=== PATIENT | female | born 1970 | race Caucasian/White ===

== ENCOUNTER 2021-04-17 17:07 | Emergency (ER) | payer OTHER, SELFPAY ==
[2021-04-17 17:18] VITALS: BP 100/76; PULSE 85; RESP 20; TEMP 37.3; O2SAT 99
== END 2021-04-17 17:27 | disposition left against medical advice (07) ==
PROVIDERS: Emergency Provider Emergency Medicine; PCP Family Medicine
DX: Z20.822 Contact with and (suspected) exposure to COVID-19 (principal)
CPT/HCPCS: 99281

== ENCOUNTER 2021-06-02 17:42 | Emergency (ER) | payer OTHER, MEDICAID, SELFPAY ==
[2021-06-02 18:20] VITALS: BP 134/85; PULSE 89; RESP 20; TEMP 36.2; O2SAT 97; BMI 29.0
--- NOTE | 2021-06-02 18:25 | DI.RAD.S_ITS ---
PROCEDURE: XR WRIST RT MIN 3V INDICATIONS: suspected right wrist fracture TECHNIQUE: 4 views of the wrist were acquired. COMPARISON: None. FINDINGS: Bones: No acute fractures or dislocations. Old ulnar styloid fracture with a large corticated fragment. Moderate degenerative joint disease at triscaphe joint, and mild degenerative joint disease of the radiocarpal joint and carpometacarpal joints. Periarticular erosion involving the 5th metacarpal head. Scaphoid view: Scaphoid is intact. Soft tissues: No suspicious soft tissue calcifications. IMPRESSION: 1. No acute fracture or dislocation. If clinical symptoms persist or clinical suspicion for pathology is high, a repeat examination in 7-10 days, or advanced imaging such as CT or MRI is suggested for further evaluation. 2. Old ulnar styloid fracture. 3. Degenerative joint disease. Dictated by: Rodger Stokes M.D. on 06/02/2021 at 18:33 Approved by: Rodger Stokes M.D. on 06/02/2021 at 18:36
--- NOTE | 2021-06-02 19:01 | ED.UPPEXIN ---
HPI - Extremity Injury (Upper) General Chief Complaint: Extremity Injury, Upper Stated Complaint: Fall, Right Wrist Injury and Head Bump Time Seen by Provider: 06/02/21 18:07 Source: patient Mode of arrival: Ambulatory Limitations: no limitations History of Present Illness HPI narrative: 50-year-old female former smoker with otherwise noncontributory medical history presents for evaluation of a ground level fall onto an outstretched right wrist. She was walking up some stairs when she tripped and stumbled onto her right outstretched arm and now has pain on the dorsum of her wrist and at the base of her thumb. She denies any numbness, tingling or weakness. She has increased pain with range of motion and improvement with rest. She did slightly bump her head but did not lose consciousness, has no nausea or vomiting, no focal neurologic findings and takes no blood thinners. She denies any prodromal symptoms and states she was not dizzy nor weak or lightheaded. She had no chest pain or palpitations. She states she just tripped when walking Related Data Allergies Allergy/AdvReac Type Severity Reaction Status Date / Time venlafaxine [From Effexor] AdvReac Verified 06/02/21 18:20 Review of Systems Review of Systems Narrative: GENERAL: Denies chills, fatigue, malaise, fever, sweats. HEENT: Denies sinus pain, ear pain, sore throat, difficulty swallowing, dizziness. RESPIRATORY: Denies dyspnea, cough, wheezing, hemoptysis, sputum. CARDIOVASCULAR: Denies chest pain, palpitations, orthopnea, edema, GASTROINTESTINAL: Denies nausea, vomiting, abdominal pain, diarrhea, constipation, melena. : Denies dysuria, frequency, incontinence, hematuria, urinary retention. MUSCULOSKELETAL: See HPI SKIN: Denies rash, skin lesions, or other NEUROLOGIC: Denies weakness, headache, numbness, change in speech, confusion, seizures, incoordination. PSYCHIATRIC: No concerning psychosocial issues. 12 point review of systems is negative except for those stated above Patient History Social History Smoking Status: Former smoker Smoking Status: Former smoker Substance Use Type: does not use Exam Narrative Exam Narrative: GENERAL: [50 year old patient appears stated age. Well-developed patient, in mild distress. GCS 15 HEAD: Atraumatic. Normocephalic. EYES: Pupils equal round and reactive. Extraocular motions intact. No scleral icterus. No injection or drainage. ENT: Nose without bleeding, purulent drainage. Throat without erythema, tonsillar hypertrophy or exudate. Airway patent. NECK: Trachea midline. Non tender CARDIOVASCULAR: Regular rate and rhythm without murmurs, gallops, or rubs. RESPIRATORY: Clear to auscultation. Breath sounds equal bilaterally. No wheezes, rales, or rhonchi. GASTROINTESTINAL: Abdomen soft, non-tender, nondistended. EXTREMITIES: Full but painful range of motion of the right wrist, she does have pain with palpation of the anatomic snuffbox as well as with axial loading of the thumb. No numbness, tingling or weakness, no laceration BACK: Nontender without deformity or crepitance. No flank tenderness. NEURO: AOx3. SKIN: No rash or erythema of visible areas Initial Vital Signs Initial Vital Signs: Vital Signs Temperature 97.2 F L 06/02/21 18:20 Pulse Rate 89 06/02/21 18:20 Respiratory Rate 20 06/02/21 18:20 Blood Pressure 134/85 06/02/21 18:20 Pulse Oximetry 97 06/02/21 18:20 Procedures Orthopedic Splinting/Casting Injury #1: Side: right Upper Extremity Injury Location: wrist Upper Extremity Immobilizer: thumb spica Post splinting neuro exam: intact Post splinting vascular exam: intact Placed by: Nursing Course Orders Ordered: ED Orders 06/02/21 18:25 XR wrist RT min 3V Stat Discontinued Medications Oxycodone/Acetaminophen (Oxycodone/Apap 5/325 Prepack) 1 bottle MISC SEEINSTR ONE Stop: 06/02/21 19:11 Last Admin: 06/02/21 19:18 Dose: 1 bottle Documented by: AUPDIKE Vital Signs Vital signs: Vital Signs - 8 hr 06/02/21 18:20 Temperature 97.2 F L Pulse Rate 89 Respiratory Rate 20 Blood Pressure 134/85 Pulse Oximetry 97 MDM - Extremity Injury (Upper) Imaging Data Extremity x-ray #1: Radiologist's Impression: Yasmin Schroeder??50??F??1970 ? Allergy/Adv: venlafaxine Close Wrist X-Ray (Signed) Isatu Stokes - 06/02/21 Launch?[address] [address] XRay Report Signed Patient: Yasmin Schroeder MR#: [id number] : 1970 Acct:[id number] Age/Sex: 50 / F Date of Service: 06/02/21 Loc: ED Accession Number: [id number] ?? Procedure: XR wrist RT min 3V Ordering Provider: Woody Lazcano D.O. PROCEDURE:? XR WRIST RT MIN 3V ? INDICATIONS: suspected right wrist fracture ? TECHNIQUE:? 4 views of the wrist were acquired.? ? COMPARISON:? None. ? FINDINGS:? ? Bones:? No acute fractures or dislocations.? Old ulnar styloid fracture with a large corticated fragment.? Moderate degenerative joint disease at triscaphe joint, and mild degenerative joint disease of the radiocarpal joint and carpometacarpal joints.? Periarticular erosion involving the 5th metacarpal head. ? Scaphoid view:? Scaphoid is intact. ? Soft tissues:? No suspicious soft tissue calcifications.? ? IMPRESSION:? ? 1. No acute fracture or dislocation.? If clinical symptoms persist or clinical suspicion for pathology is high, a repeat examination in 7-10 days, or advanced imaging such as CT or MRI is suggested for further evaluation. 2. Old ulnar styloid fracture. 3. Degenerative joint disease.? ? ? Dictated by: Rdoger Stokes M.D. on 06/02/2021 at 18:33 ? ? Approved by: Rodger Stokes M.D. on 06/02/2021 at 18:36 ? MDM Narrative Medical decision making narrative: Patient with ground level fall and pain of right wrist. X-ray demonstrates no obvious fracture or dislocation but given mechanism of injury, pain in the snuffbox as well as axial loading of the thumb I discussed with patient my concern for a potential occult fracture of her scaphoid. She is placed in a spica and given return precautions, she understands the importance of follow-up Discharge Plan Departure Patient Disposition: Home Clinical Impression: Right wrist sprain Qualifiers: Encounter type: initial encounter Qualified Code(s): S63.501A - Unspecified sprain of right wrist, initial encounter Instructions: Wrist Fracture Activity Restrictions/Additional Instructions: *You have been diagnosed with [wrist sprain with possible occult fracture of scaphoid ] *What to do: *Please continue to take your regular medications as directed. [ ] New medication prescriptions sent to your pharmacy: [ ] [ ] New medication written as a paper prescription [x] Tylenol and occasional Motrin for pain *Please follow up with [[place] ] of [facility] in 2-3 days, call for an appointment. Let them know you were seen in the Emergency Department and that we ask that you be seen in follow up. We will electronically transmit a record of today's note if your PCP is in our system *Return to Emergency Department if you should have any new, worsening or concerning symptoms, such as [worsening pain, significant swelling, cold extremities, numbness, tingling, weakness or other bothersome symptoms Splint Care: Keep splint clean and dry. Elevated affected body part to decrease swelling. OK to use ice pack on the affected body part. Use for 15-20 minutes each time, for 5-6x per day. If you develop worsening pain, numbness, tingling, discoloration of the affected body part, loosen the splint by loosening the MEENA wrap, and either see your doctor for an urgent re-assessment, or return to the Emergency Department. Return to the Emergency Department for any new or worsening symptoms. You have been prescribed a short course of narcotic medications. These are potentially dangerous and addictive medications that should be used carefully. While on these medications you cannot drive or operate heavy machinery. Additionally, you cannot sign legal documents or perform any duties such as this. Many people get constipated on narcotic medications so it would be advisable to discuss stool softeners with the pharmacist when you pear picker your prescription. Please understand that we cannot provide further refills of narcotics or controlled substances through the ED and your pain management will need to be through your Primary Care Provider Referrals: Anup Gould MD [Primary Care Provider] - Arina Simmons MD [Physician] -
[2021-06-02] MEDS: OXYCODONE/APAP 5/325 PREPACK 1 BOTTLE MISC (19:18)
== END 2021-06-02 19:37 | disposition home or self-care (01) ==
PROVIDERS: Emergency Provider Emergency Medicine; PCP Family Medicine
DX: S63.501A Unspecified sprain of right wrist, initial encounter (principal); W01.198A Fall on same level from slipping, tripping and stumbling with subsequent striking against other object, initial encounter
CPT/HCPCS: 73110; 99282; 99283

== ENCOUNTER 2021-10-17 14:37 | Emergency (ER) | payer OTHER, MEDICAID, SELFPAY ==
[2021-10-17 14:45] VITALS: BP 135/83; PULSE 78; RESP 16; TEMP 36.1; O2SAT 96; BMI 28.1
== END 2021-10-17 16:47 | disposition left against medical advice (07) ==
PROVIDERS: Emergency Provider Emergency Medicine; PCP Family Medicine
DX: Z53.21 Procedure and treatment not carried out due to patient leaving prior to being seen by health care provider (principal)
CPT/HCPCS: 99281

== ENCOUNTER 2022-06-09 20:11 | Emergency (ER) | payer OTHER, MEDICAID, SELFPAY ==
[2022-06-09 20:17] VITALS: BP 136/77; PULSE 75; RESP 18; TEMP 35.9; O2SAT 95; BMI 28.1
--- NOTE | 2022-06-09 20:20 | DI.RAD.S_ITS ---
PROCEDURE: XR ANKLE RT MIN 3V INDICATIONS: Right ankle swelling TECHNIQUE: 3 views of the ankle were acquired. COMPARISON: None. FINDINGS: Bones: There is a mildly displaced fracture of the lateral malleolus. A mildly displaced fracture of the base of the 5th metatarsal is also present. Ankle mortise is normally aligned. No suspicious bony lesions. Soft tissues: There is a small tibiotalar joint effusion. There is periarticular soft tissue swelling anterolaterally. A small calcification anterior to the tibiotalar joint is suggestive of a small joint body. Achilles tendon appears intact. IMPRESSION: 1. Mildly displaced fractures of the lateral malleolus and base of the 5th metatarsal. 2. Suspected small joint body anterior to the tibiotalar joint. Dictated by: Yehuda Wallace M.D. on 06/09/2022 at 21:21 Approved by: Yehuda Wallace M.D. on 06/09/2022 at 21:23
--- NOTE | 2022-06-09 21:04 | DI.RAD.S_ITS ---
PROCEDURE: XR FOOT RT MIN 3V INDICATIONS: base of 5th fx TECHNIQUE: 3 views of the foot were acquired. COMPARISON: [facility], CR, XR ANKLE RT MIN 3V, 06/09/2022, 20:22. FINDINGS: Bones: There is a mildly displaced fracture of the base of the 5th metatarsal. A mildly displaced fracture of the lateral malleolus is also demonstrated. Soft tissues: There is mild soft tissue swelling lateral to the base of the 5th metatarsal. Periarticular soft tissue swelling is demonstrated along the anterolateral aspect of the ankle. IMPRESSION: 1. Mildly displaced fractures of the base of the 5th metatarsal and lateral malleolus. Dictated by: Yehuda Wallace M.D. on 06/09/2022 at 21:29 Approved by: Yehuda Wallace M.D. on 06/09/2022 at 21:30
--- NOTE | 2022-06-09 21:15 | ED.LOWEXIN ---
HPI - Extremity Injury (Lower) General Chief Complaint: Extremity Injury, Lower Stated Complaint: Thinks broken ankle Time Seen by Provider: 06/09/22 21:00 Source: patient Mode of arrival: Wheelchair Limitations: no limitations History of Present Illness HPI Narrative: 51-year-old female who is here for evaluation of a right ankle/foot injury. Stated that she was going down some stairs when she twisted her right ankle. Has had pain and swelling. No prior injuries. Unable to ambulate. Related Data Previous Rx's Medication Instructions Recorded hydrocodone 5 mg-acetaminophen 325 1 tab PO Q4-6H PRN pain #10 tabs 06/09/22 mg tablet Allergies Allergy/AdvReac Type Severity Reaction Status Date / Time venlafaxine [From Effexor] AdvReac Verified 06/09/22 20:17 Review of Systems Musculoskeletal Musculoskeletal: Reports system reviewed and no additional complaints, except as documented Integumentary/Breasts Skin/Breast: Reports system reviewed and no additional complaints, except as documented Neurologic Neurologic: Reports system reviewed and no additional complaints, except as documented Hematologic/Lymphatic On Anticoagulants: No Patient History Social History Smoking Status: Former smoker Smoking Status: Former smoker alcohol intake frequency: holidays/special occasions only Substance Use Type: does not use Exam Initial Vital Signs Initial Vital Signs: Vital Signs Temperature 96.6 F L 06/09/22 20:17 Pulse Rate 75 06/09/22 20:17 Respiratory Rate 18 06/09/22 20:17 Blood Pressure 136/77 06/09/22 20:17 Pulse Oximetry 95 06/09/22 20:17 Oxygen Delivery Method 06/09/22 20:17 HENNY Head: normal to inspection and normocephalic Cardio Pulses: dorsalis pedis present on the right Skin General: no rashes or lesions noted Neuro Sensory Exam: no sensory deficits noted Extrem Other: No proximal fibula tenderness. No Achilles tenderness. Has tenderness along the lateral malleolus with swelling over the area. Also has tenderness along the base of the 5th metatarsal with swelling. No tenderness over the Lisfranc joint. The medial malleolus is unremarkable. The rest of the midfoot is unremarkable. Procedures Orthopedic Splinting/Casting Injury #1: Side: right Lower Extremity Injury Location: ankle and foot Lower Extremity Immobilizer: posterior splint Post splinting neuro exam: intact Post splinting vascular exam: intact Placed by: Nursing Course Orders Ordered: ED Orders 06/09/22 20:20 XR ankle RT min 3V Stat 06/09/22 21:04 XR foot RT min 3V Stat Discontinued Medications Hydrocodone Bitart/Acetaminophen (Hydrocodone/Acet 5/325 Tablet) 1 tab PO NOW ONE Stop: 06/09/22 21:56 Last Admin: 06/09/22 22:00 Dose: 1 tab Documented By: DONNA Hydrocodone Bitart/Acetaminophen (Hydrocodone/Acet 5/325 Prepack) 1 bottle MISC SEEINSTR ONE Stop: 06/09/22 21:56 Last Admin: 06/09/22 22:13 Dose: 1 bottle Documented By: DONNA Vital Signs Vital signs: Vital Signs - 8 hr 06/09/22 22:40 Pulse Rate 75 Respiratory Rate 18 Blood Pressure 134/88 Pulse Oximetry 97 Oxygen Delivery Method Room Air MDM - Extremity Injury (Lower) Imaging Data Extremity x-ray #1: Radiologist's Impression: [address] [address] XRay Report Signed Patient: Yasmin Schroeder MR#: [id number] : 1970 Acct:[id number] Age/Sex: 51 / F Date of Service: 06/09/22 Loc: ED Accession Number: [id number] ?? Procedure: XR ankle RT min 3V Ordering Provider: Marquis Noel D.O. PROCEDURE:? XR ANKLE RT MIN 3V ? INDICATIONS:? Right ankle swelling ? TECHNIQUE:? 3 views of the ankle were acquired.? ? COMPARISON:? None. ? FINDINGS:? ? Bones:? There is a mildly displaced fracture of the lateral malleolus.? A mildly displaced fracture of the base of the 5th metatarsal is also present.? Ankle mortise is normally aligned.? No suspicious bony lesions.? ? Soft tissues:? There is a small tibiotalar joint effusion.? There is periarticular soft tissue swelling anterolaterally.? A small calcification anterior to the tibiotalar joint is suggestive of a small joint body.? Achilles tendon appears intact.? ? ? IMPRESSION:? ? 1. Mildly displaced fractures of the lateral malleolus and base of the 5th metatarsal. ? 2. Suspected small joint body anterior to the tibiotalar joint. ? Dictated by: Yehuda Wallace M.D. on 06/09/2022 at 21:21 ? ? Approved by: Yehuda Wallace M.D. on 06/09/2022 at 21:23 Extremity x-ray #2: Radiologist's Impression: [address] [address] XRay Report Signed Patient: Yasmin Schroeder MR#: [id number] : 1970 Acct:[id number] Age/Sex: 51 / F Date of Service: 06/09/22 Loc: ED Accession Number: [id number] ?? Procedure: XR foot RT min 3V Ordering Provider: Marquis Noel D.O. PROCEDURE:? XR FOOT RT MIN 3V ? INDICATIONS:? base of 5th fx ? TECHNIQUE:? 3 views of the foot were acquired.? ? COMPARISON:? [facility], CR, XR ANKLE RT MIN 3V, 06/09/2022, 20:22. ? FINDINGS:? ? Bones:? There is a mildly displaced fracture of the base of the 5th metatarsal.? A mildly displaced fracture of the lateral malleolus is also demonstrated. ? Soft tissues:? There is mild soft tissue swelling lateral to the base of the 5th metatarsal.? Periarticular soft tissue swelling is demonstrated along the anterolateral aspect of the ankle. ? ? IMPRESSION:? ? 1. Mildly displaced fractures of the base of the 5th metatarsal and lateral malleolus. ? ? Dictated by: Yehuda Wallace M.D. on 06/09/2022 at 21:29 ? ? Approved by: Yehuda Wallace M.D. on 06/09/2022 at 21:30? MDM Narrative Medical decision making narrative: Fractures noted on the x-rays. She is neurovascularly intact. Posterior splint placed. Was given crutches. Instructions for care and follow-up with orthopedic surgery. She was given return precautions. She expressed understanding and agreement. Discharge Plan Departure Patient Disposition: Home Clinical Impression: Fracture of distal end of fibula, Closed fracture of fifth metatarsal bone Instructions: How to Use Crutches, DI for Ankle Fracture, How to Take Care of Your Splint Activity Restrictions/Additional Instructions: The splint needs to stay on and stay clean and stay dry. Treat it like a cast. Contact the orthopedic doctors at the number provided below. Return to the emergency department for any new or worsening symptoms Prescriptions: New hydrocodone-acetaminophen 5-325 mg tablet 1 tab PO Q4-6H PRN (Reason: pain) Qty: 10 0RF Referrals: Anup Gould MD [Primary Care Provider] - Cortez Mullen MD [Physician] - Visit Report Forms: Patient Portal/API
[2022-06-09] MEDS: HYDROCODONE/ACET 5/325 TABLET 1 TAB PO (22:00)
[2022-06-09] MEDS: HYDROCODONE/ACET 5/325 PREPACK 1 BOTTLE MISC (22:13)
[2022-06-09 22:40] VITALS: BP 134/88; PULSE 75; RESP 18; O2SAT 97
--- NOTE | 2022-06-10 14:20 | PC.NURSE ---
Received phone call from patient who states that [facility] would not fill narcotic pain medication because she is also on suboxone. Confirmed that it is a valid prescription. They will fill. I called pt back and discussed cumulative / additive effect of her medications, including muscle relaxants.
== END 2022-06-09 22:43 | disposition home or self-care (01) ==
PROVIDERS: Emergency Provider Emergency Medicine; PCP Family Medicine
DX: S82.401A Unspecified fracture of shaft of right fibula, initial encounter for closed fracture (principal); S92.351A Displaced fracture of fifth metatarsal bone, right foot, initial encounter for closed fracture; X50.1XXA Overexertion from prolonged static or awkward postures, initial encounter; W10.9XXD Fall (on) (from) unspecified stairs and steps, subsequent encounter
CPT/HCPCS: 29515; 73610; 73630; 99283

== ENCOUNTER 2023-08-08 21:26 | Emergency (ER) | payer OTHER, MEDICAID, SELFPAY ==
[2023-08-08 21:29] VITALS: BP 141/92; PULSE 88; RESP 22; TEMP 36.6; O2SAT 100; BMI 25.0
--- NOTE | 2023-08-08 21:50 | ED_ITS ---
HPI - Back Pain/Injury General Chief Complaint: Back Pain/Injury Stated Complaint: back pain Time Seen by Provider: 08/08/23 21:50 Source: patient History of Present Illness HPI Narrative: 53-year-old woman with a history of methamphetamine and opioid use prior Suboxone treatment with no reported use of recreational drugs for 9 years, hepatitis-C, prior thoracic spine fracture with surgical intervention who presents complaining of severe mid back pain radiating up into her chest. On initial presentation she is in so much pain that she is non consolable and additional history is not able to be obtained. After pain is better controlled patient is re-evaluated. She states for the last 2 weeks she is been having severe mid back pain hurts to take a deep breath, denies any change to cough, has her usual chronic headaches that have not been exacerbated. She finds that she is unable to sleep on her back because it hurts too much. She has not had fevers and denies any kind of trauma. She does have hardware in her spine after thoracic spine surgery number of years ago. She does have a history of IV drug use but states she has not used any drugs for at least 9 years. She has also successfully stopped smoking tobacco. She is not complaining of nausea, vomiting, diarrhea, abdominal pain. No significant neurologic complaints and no pelvic or low back pain. Related Data Home Medications Medication Instructions Recorded Confirmed buprenorphine 8 mg-naloxone 2 mg 1 film buccal DAILY 06/10/22 06/10/22 sublingual film Previous Rx's Medication Instructions Recorded hydrocodone 5 mg-acetaminophen 325 1 tab PO Q4-6H PRN pain #10 tabs 06/09/22 mg tablet naloxone 4 mg/actuation nasal spray 4 mg intranasal Q2M PRN opioid 08/09/23 overdose #2 ea naproxen 500 mg tablet 500 mg PO BID #60 tabs 08/09/23 oxycodone-acetaminophen 5 mg-325 1 tab PO Q6H PRN cancer pain #40 08/09/23 mg tablet tabs polyethylene glycol 3350 17 gram 17 g PO BID #100 ea 08/09/23 oral powder packet (Gavilax) Allergies Allergy/AdvReac Type Severity Reaction Status Date / Time venlafaxine [From Effexor] AdvReac Verified 06/09/22 20:17 Review of Systems Review of Systems Narrative: Pertinent positive and negative findings as per HPI Patient History Medical History IV drug user Social History Smoking Status: Former smoker Smoking Status: Former smoker alcohol intake frequency: holidays/special occasions only Substance Use Type: does not use Exam Initial Vital Signs Initial Vital Signs: Vital Signs Temperature 98 F 08/08/23 21:29 Pulse Rate 88 08/08/23 21:29 Respiratory Rate 22 08/08/23 21:29 Blood Pressure 141/92 H 08/08/23 21:29 Pulse Oximetry 100 08/08/23 21:29 Oxygen Delivery Method Room Air 08/08/23 21:29 General: Chronically ill-appearing, in significant distress once pain was addressed she was able to cooperate more to Able to give a complete and coherent history. HEENT: Moist mucous membranes, normal sclera with reactive pupils, Neck: No JVD, supple Respiratory: Lungs are clear to auscultation, no wheezing no rales no rhonchi. Full and symmetrical air movement Chest: She is exquisitely tender midline at approximately T 8 and then again T10-11 and 12. There are no skin changes over this area. She is exquisitely tender over posterior ribs with no skin changes, subcutaneous air or single point tenderness Cardiac: Regular rate and rhythm no murmurs no bruits Abdomen: Soft, nontender, good bowel tones, no flank pain Skin: Warm and dry, no rashes, old track kellogg no new skin abnormalities Neurologic: Grossly neurologically intact with no obvious asymmetries or abnormalities Extremities: No trauma, well perfused Psych: Cooperative, appropriate insight and affect Course Orders Ordered: ED Orders 08/08/23 22:25 CRP [C-Reactive Protein Quant] Stat Complete Blood Count AUTO DIFF Stat Comprehensive Metabolic Panel Stat Erythrocyte Sedimentation Rate Stat 08/08/23 23:55 CT chest w con Stat Discontinued Medications Hydromorphone HCl (Hydromorphone 1 Mg Inj) 1 mg IV NOW ONE Stop: 08/08/23 22:04 Last Admin: 08/08/23 22:07 Dose: 1 mg Documented By: CATHY Vital Signs Vital signs: Vital Signs - 8 hr 08/08/23 21:29 Temperature 98 F Pulse Rate 88 Respiratory Rate 22 Blood Pressure 141/92 H Pulse Oximetry 100 Oxygen Delivery Method Room Air MDM - Back Pain/Injury Lab Data 08/08/23 22:25 08/08/23 22:25 Labs: Lab Results 08/08/23 Range/Units 22:25 WBC 6.9 (4.5-11.0) X10^3/uL RBC 4.44 (4.0-5.2) X10^6/uL Hgb 12.8 (12.0-16.0) g/dL Hct 38.4 (36-46) % MCV 86.4 (80-100) fL MCH 28.8 (26-34) PG MCHC 33.4 (30-36) % RDW 14.3 (11.6-14.8) % Plt Count 234 (150-400) X10^3/uL Neut % (Auto) 74.2 (50-75) % Lymph % (Auto) 19.2 L (25-40) % Williamson % (Auto) 5.7 (3-14) % Eos % (Auto) 0.6 L (2-4) % Baso % (Auto) 0.3 (0-2) % Neut # (Auto) 5100 (9812-5122) /uL Lymph # (Auto) 1300 (4178-7103) /uL Williamson # (Auto) 400 (0-900) /uL Eos # (Auto) 0 (0-450) /uL Baso # (Auto) 0 (0-100) /uL ESR 11 (0-20) MM/HR Sodium 137 (137-145) mmol/L Potassium 4.4 (3.4-5.1) mmol/L Chloride 101 (98-107) mmol/L Carbon Dioxide 29 (22-32) mmol/L BUN 18 H (7-17) mg/dL Creatinine 0.95 (0.52-1.04) mg/dL Estimated GFR > 60 (>60) mL/min BUN/Creatinine Ratio 18.9 (6-22) Glucose 85 (70-100) mg/dL Calcium 10.7 H (8.4-10.2) mg/dL Total Bilirubin 0.5 (0.2-1.3) mg/dL AST 23 (14-36) IU/L ALT 16 (<35) IU/L Alkaline Phosphatase 130 H (38-126) U/L C-Reactive Protein 1.4 H (<1.0) mg/dL Total Protein 7.9 (6.3-8.2) g/dL Albumin 4.3 (3.5-5.0) g/dL Globulin 3.6 (1.7-4.1) g/dL Albumin/Globulin Ratio 1.2 (1.0-2.8) Imaging Data CT scan of the chest: Radiologist's Impression: FINDINGS: Image quality: Diagnostic Lungs and pleura: No acute air space opacities. No pleural effusions or pneumothorax. Central and peripheral airways are patent and normal in caliber. Minimal bibasilar atelectasis. Mediastinum: Heart size is normal. No pericardial effusion. No mediastinal adenopathy by size criteria. Thoracic aorta and central pulmonary arteries are normal in size. Esophagus is normal in caliber. No hiatal hernia. Bones and chest wall: No axillary or supraclavicular adenopathy by size criteria. Thyroid gland is unremarkable. Age-indeterminate, healing lateral right 4th rib fracture. There is also a healing, age-indeterminate left rib fracture. Healed posterolateral left 7th rib fracture deformity. Similar finding involving the posterior left 9th rib. Age-indeterminate healing posterior left 6 rib fracture. Ill-defined lucent lesions along the posterior left 6th rib. Additionally, multiple ill-defined lucency seen throughout the imaged osseous structures. Additionally, multiple ill-defined lucent lesion seen throughout the thoracic spine and upper lumbar spine. Age- indeterminate compression fracture involving the mid vertebral body of T7. Severe compression fracture of the T10 vertebral body with significant vertebral body height loss. Mild retropulsion of the posterior margin of the inferior endplate of T10 resulting in moderate spinal canal stenosis at this level. Mild anterior compression fracture of T11. Age-indeterminate severe compression fracture of the T12 vertebral body with significant vertebral body height loss. There is moderate spinal canal stenosis at this level. There is also a ill-defined lytic/sclerotic lesion in the right humeral head. Abdomen: Visualized upper abdominal solid organs and bowel loops appear normal in the absence of contrast. IMPRESSION: 1. CT chest without acute cardiopulmonary abnormalities. No acute airspace disease identified. 2. Extensive ill-defined osseous lucencies seen throughout the imaged skeleton. Numerous lytic lesions are noted in the ribs with multiple age-indeterminate healing rib fractures. There are also multiple age-indeterminate compression fractures of the T7, T10, T11, and T12 vertebral bodies. Numerous lucent lesions and somewhat mottled appearance of multiple vertebral bodies of the mid and lower thoracic spine. Findings are suspicious for osseous metastases or other neoplastic process. 3. Ill-defined mixed lytic and sclerotic lesion in the right humeral head possibly related to remote bone infarction. Dictated by: Facundo Pandey M.D. on 08/09/2023 at 0:38 MDM Narrative Medical decision making narrative: CC: Severe thoracic back pain for 2 weeks Complicating co-morbidities: No recent trauma or infection. Prior history of multiple compression fractures with to known fractures that are still unhealed. She currently is living in a clean and sober house. She has undergone treatment for her hepatitis-C. She is on Prozac, Wellbutrin for depression, Seroquel for sleep and anxiety, lidocaine patches for her chronic thoracic spine pain baclofen and Flexeril for muscle spasm and atenolol for hypertension Data collected from: patient Medical records reviewed: Notes from [facility] Emergency Department are reviewed, notes from Care everywhere with some access to [facility] in [place] are also reviewed Differential considered: Pleuritic pain, compression fracture, epidural abscess or diskitis, pneumothorax, pleural effusion, doubt acute coronary syndrome or dissection. Exam documented above, pertinent findings include: Splinting secondary to pain but when she does take a deep breath I am not appreciating rhonchi or rales. She has significant point tenderness along the thoracic spine without skin changes, erythema or warmth Lab Test results independently reviewed as above. Pertinent findings: CBC is unremarkable Chemistries are notable for a calcium slightly high at 10.7, alkaline phosphatase minimally elevated at 130 remainder of labs are unremarkable C-reactive protein is slightly elevated at 1.4 Imaging studies independently reviewed: Formal read of the CT scan indicates extensive lytic lesions with multiple age indeterminate compression fractures as well as lucent lesions and mottled appearance of multiple vertebral bodies findings are concerning for bony metastases or other neoplastic process. Similar finding in the right humeral head. The multiple compression fractures are old and patient is aware of all of the is. CT scan of the head shows no acute intracranial processes CT scan of the abdomen and pelvis does not show any obvious primary or metastatic cancers. Significant fecal burden. Consultations: Real-time discussion with Dr. Hwang, radiologist with real-time radiology. He does note that there are lytic lesions with in the pelvis and lumbar vertebrae. No lytic lesions appreciated in the calvarium. He agrees with concern for metastatic disease in relation to the lytic lesions in the pelvis and lumbar spine Call to [facility] operator insulation oncology to discuss plan, Dr Hipolito Gibson. States that radiation could certainly help with the vertebral bone pain. She also noted that sometimes metastatic small-cell cancers or myeloma can benefit from systemic chemotherapy for palliative control even before radiation treatment. Her suggestion was a PET scan and talking to Radiology and seeing if there were any lesions that were amenable to biopsy for diagnostic purposes. Treatments: 1 mg of parenteral hydromorphone for immediate pain control. Two oxycodone orally for continued pain control Re-evaluations: In light of the multiple lytic lesions found possibility of multiple myeloma is entertained. No signs of anemia, calcium is slightly elevated at 10.7, there is no renal insufficiency 140am findings of the CT scan are reviewed with the patient and additional history is obtained. She states that she was told back in 2005 that she had some ?spots in her bones? but she was too afraid to follow-up at that time. She notes that she has been having severe headaches worse in the last 2 weeks, no other neurologic complaints. Over the last 5-6 months she has gone from a size 16 down to a size 8 without effort. She does not notice specific abdominal pain. She does note that she has lost significant appetite and is having more frequent emesis for unexplained reasons. Discussion: 53-year-old woman presents with severe back pain and imaging indicates that she is got multiple sclerotic lesions throughout her axial skeleton pelvis and right humerus. These are likely significantly contributing to the thoracic midline spine pain. CT scans of the head chest abdomen and pelvis do not show any obvious primaries. Blood work does not suggest significant leukemia. Multiple myeloma certainly remains within the realm of possibilities. Discussed options with the patient including appropriate pain control. She does have a history of opioid use disorder and has been clean and sober for a number of years and currently is in a clean and sober house. Unclear if using narcotics to treat her presumed metastatic cancer pain will in danger her housing situation. It is currently and a Thursday and I am not sure if we chose to admit her to the hospital for pain control and plans for bone biopsy and additional advanced imaging. The radiologist had suggested a nuclear medicine bone scan, radiation oncology recommended PET scan. It is unclear if any of this can be facilitated at [facility] over the . In looking at records and Care everywhere through [facility], it looks like the last time she saw her primary care provider through [facility] in [place] was in August of 2021, Yasmin says that she saw her is recently as 3 or 4 months ago. With shared decision-making, we opted not to admit her to the hospital for expedited workup given the fact that probably are going to be able to expedite her workup over the next 48 hours. We had a sabas discussion regarding narcotic use. She does not think that this will endanger her clean and sober living. She is not concerned that the narcotics will be abused, she she states that she is fearful of narcotics at this time. She states she does have Narcan available at home. In conclusion, 53-year-old woman with severe back pain secondary to multiple sclerotic lesions likely metastatic with unknown primary at this point will need workup including biopsy, oncology referral, PET versus nuclear medicine bone scan or both. The patient will call her primary doctor on the . I will give her copies of labs notes and imaging studies available to me today to share with her doctor. In the meantime will ask her to be on scheduled 500 mg of naproxen morning and night, no ibuprofen and 1-2 Percocet every 6 hours for severe bone pain. We will give her a total of 40 tablets along with a Narcan prescription. She will ask her friend to help dispensed these so overuse is not a concern. No told her that she can return to the ER if she has recurrent severe pain. She understands the need for follow-up. Questions are answered and she will be discharged Discharge Plan Departure Patient Disposition: Home Clinical Impression: Pain in thoracic spine at multiple sites, Lytic lesion of bone on x-ray Constipation Qualifiers: Constipation type: unspecified constipation type Qualified Code(s): K59.00 - Constipation, unspecified Activity Restrictions/Additional Instructions: Thank you for coming in today Unfortunately, I did find an explanation for the severe spine and rib pain that you are experiencing. Your CT scans show that you have bony lesions in your spine, pelvis, ribs and right upper arm. This is very concerning for cancer and it is not clear whether it is a primary bone cancer or cancer that has spread to your bones. We did do CT scans of your head, chest, abdomen and pelvis and aside from the bone concerns, did not find obvious tumors or masses in your brain, lungs, abdominal organs or pelvic organs. You are going to need to call your primary care doctor on the and let her know that you were in the emergency department with concerns for metastatic cancer to your bones and need for diagnosis, referral and follow-up. I will give you copies of the labs, imaging studies and my note to share with your primary care doctor to see if that will help expedite your workup In the meantime, for pain control I want you to use Naprosyn(the prescription version of aleve) morning and night as baseline pain control. Do not take ibuprofen as the 2 are very very similar To this you can add Percocet, (Tylenol plus oxycodone) every 6 hours. dose of MiraLax(polyethylene glycol) morning and night to deal with the current constipation and help prevent future constipation. Prescriptions were electronically transmitted to [facility] in [place] If you are having uncontrolled pain, new symptoms or concerns or additional problems please feel free to return to the emergency department I wish you the very best Prescriptions: New naproxen 500 mg tablet 500 mg PO BID Qty: 60 1RF oxycodone-acetaminophen 5-325 mg tablet 1 tab PO Q6H PRN (Reason: cancer pain) Qty: 40 0RF naloxone 4 mg/actuation spray,non-aerosol 4 mg intranasal Q2M PRN (Reason: opioid overdose) Qty: 2 0RF Rx Instructions: spray 1 dose into ONE nostril; alternate nostrils w each dose until help arrives polyethylene glycol 3350 [Gavilax] 17 gram powder in packet 17 g PO BID Qty: 100 0RF No Action hydrocodone-acetaminophen 5-325 mg tablet 1 tab PO Q4-6H PRN (Reason: pain) Qty: 10 0RF buprenorphine-naloxone 8-2 mg film 1 film buccal DAILY Patient Comments: Dissolve 1 film by mouth Daily for 14 days Referrals: Anup Gould MD [Primary Care Provider] - Stand Alone Forms: Patient Portal/API
[2023-08-08] MEDS: HYDROMORPHONE 1 MG INJ IV (22:07)
--- NOTE | 2023-08-08 22:15 | PC.NURSE ---
c/o mid back pain has hurt back in the past, pt moving all extemities without difficulty
[2023-08-08 22:40] LABS: Add Manual Diff / Slide Review NO; Basophils Absolute Auto 0 /uL (0-100); Basophils Percent Auto 0.3 % (0-2); Eosinophils Absolute Auto 0 /uL (0-450); Eosinophils Percent Auto 0.6 % (2-4); Hematocrit 38.4 % (36-46); Hemoglobin 12.8 g/dL (12.0-16.0); Lymphocytes Absolute Auto 1300 /uL (1100-4500); Lymphocytes Percent Auto 19.2 % (25-40); Mean Corpuscular HGB Conc 33.4 % (30-36); Mean Corpuscular Hemoglobin 28.8 PG (26-34); Mean Corpuscular Volume 86.4 fL (80-100); Monocytes Absolute Auto 400 /uL (0-900); Monocytes Percent Auto 5.7 % (3-14); Neutrophils Absolute Auto 5100 /uL (1500-7000); Neutrophils Percent Auto 74.2 % (50-75); Platelet Count 234 X10^3/uL (150-400); Red Blood Cell Count 4.44 X10^6/uL (4.0-5.2); Red Cell Distribution Width 14.3 % (11.6-14.8); White Blood Cell Count 6.9 X10^3/uL (4.5-11.0)
[2023-08-08 22:51] LABS: Alanine Aminotransferase 16 IU/L (<35); Albumin 4.3 g/dL (3.5-5.0); Albumin Globulin Ratio 1.2 (1.0-2.8); Alkaline Phosphatase 130 U/L (38-126); Aspartate Aminotransferase 23 IU/L (14-36); BUN Creatinine Ratio 18.9 (6-22); Bilirubin Total 0.5 mg/dL (0.2-1.3); Blood Urea Nitrogen 18 mg/dL (7-17); Calcium 10.7 mg/dL (8.4-10.2); Carbon Dioxide 29 mmol/L (22-32); Chloride 101 mmol/L (98-107); Estimated Glomerular Filt Rate > 60 mL/min (>60); Globulin 3.6 g/dL (1.7-4.1); Glucose 85 mg/dL (70-100); HEMOLYSIS < 15 (0-50); Potassium 4.4 mmol/L (3.4-5.1); Sodium 137 mmol/L (137-145); Total Protein 7.9 g/dL (6.3-8.2)
[2023-08-08 23:02] LABS: C-Reactive Protein Quant 1.4 mg/dL (<1.0)
[2023-08-08 23:03] LABS: Erythrocyte Sedimentation Rate 11 MM/HR (0-20)
--- NOTE | 2023-08-08 23:55 | DI.CT.S_ITS ---
PROCEDURE: CT CHEST W CON INDICATIONS: severe pain post chest and thorasic spine TECHNIQUE: After the administration of intravenous contrast, 5 mm thick sections acquired from the pulmonary apices to the posterior costophrenic angles. 1 mm axial lung, 5 mm thick coronal and sagittal reformats and 7 mm axial MIP were acquired. For radiation dose reduction, the following was used: automated exposure control, adjustment of mA and/or kV according to patient size. COMPARISON: None. FINDINGS: Image quality: Diagnostic Lungs and pleura: No acute air space opacities. No pleural effusions or pneumothorax. Central and peripheral airways are patent and normal in caliber. Minimal bibasilar atelectasis. Mediastinum: Heart size is normal. No pericardial effusion. No mediastinal adenopathy by size criteria. Thoracic aorta and central pulmonary arteries are normal in size. Esophagus is normal in caliber. No hiatal hernia. Bones and chest wall: No axillary or supraclavicular adenopathy by size criteria. Thyroid gland is unremarkable. Age-indeterminate, healing lateral right 4th rib fracture. There is also a healing, age-indeterminate left rib fracture. Healed posterolateral left 7th rib fracture deformity. Similar finding involving the posterior left 9th rib. Age-indeterminate healing posterior left 6 rib fracture. Ill-defined lucent lesions along the posterior left 6th rib. Additionally, multiple ill-defined lucency seen throughout the imaged osseous structures. Additionally, multiple ill-defined lucent lesion seen throughout the thoracic spine and upper lumbar spine. Age-indeterminate compression fracture involving the mid vertebral body of T7. Severe compression fracture of the T10 vertebral body with significant vertebral body height loss. Mild retropulsion of the posterior margin of the inferior endplate of T10 resulting in moderate spinal canal stenosis at this level. Mild anterior compression fracture of T11. Age-indeterminate severe compression fracture of the T12 vertebral body with significant vertebral body height loss. There is moderate spinal canal stenosis at this level. There is also a ill-defined lytic/sclerotic lesion in the right humeral head. Abdomen: Visualized upper abdominal solid organs and bowel loops appear normal in the absence of contrast. IMPRESSION: 1. CT chest without acute cardiopulmonary abnormalities. No acute airspace disease identified. 2. Extensive ill-defined osseous lucencies seen throughout the imaged skeleton. Numerous lytic lesions are noted in the ribs with multiple age-indeterminate healing rib fractures. There are also multiple age-indeterminate compression fractures of the T7, T10, T11, and T12 vertebral bodies. Numerous lucent lesions and somewhat mottled appearance of multiple vertebral bodies of the mid and lower thoracic spine. Findings are suspicious for osseous metastases or other neoplastic process. 3. Ill-defined mixed lytic and sclerotic lesion in the right humeral head possibly related to remote bone infarction. Dictated by: Facundo Pandey M.D. on 08/09/2023 at 0:38 Approved by: Facundo Pandey M.D. on 08/09/2023 at 0:56
[2023-08-09] VITALS (12 sets, daily range): BP systolic 120–137; BP diastolic 72–90; PULSE 65–78; RESP 18; O2SAT 93–97
--- NOTE | 2023-08-09 01:51 | DI.CT.S_ITS ---
PROCEDURE: CT HEAD/BRAIN WO CON INDICATIONS: severe headaches for 2 weeks TECHNIQUE: Noncontrast 4.5 mm thick angled axial sections acquired from the foramen magnum to the vertex, with coronal and sagittal reformats. For radiation dose reduction, the following was used: automated exposure control, adjustment of mA and/or kV according to patient size. COMPARISON: None. FINDINGS: Image quality: Diagnostic Slight motion degradation CSF spaces: Basal cisterns are patent. Lateral ventricles are symmetric. Volume: Generally maintained. Brain: No acute intracranial hemorrhage or gross loss of fuchs-white differentiation. Slight hyperdensity in the venous structures, likely from prior contrast administration. Craniofacial structures: No paranasal sinus opacification were seen. IMPRESSION: No acute intracranial abnormality. If there is high concern for parenchymal pathology, consider further evaluation with MRI. Agree with prelim report. Dictated by: Peng Layton M.D. on 08/09/2023 at 6:56 Approved by: Peng Layton M.D. on 08/09/2023 at 6:58
--- NOTE | 2023-08-09 01:51 | DI.CT.S_ITS ---
PROCEDURE: CT ABDOMEN PELVIS W CON INDICATIONS: unexplained weight loss, nausea vomiting, TECHNIQUE: After the administration of intravenous contrast, axial sections acquired from the lung bases to the pubic symphysis. Coronal and sagittal reformats were performed. For radiation dose reduction, the following was used: automated exposure control, adjustment of mA and/or kV according to patient size. COMPARISON: [facility], CT, CT CHEST W CON, 08/09/2023, 0:21. FINDINGS: Image quality: Good Lower chest: Separately dictated. Small Bochdalek's hernia on the right. Liver: Ill-defined area of hypoattenuation is seen adjacent to the falciform ligament measuring about 1.6 cm (coronal image 12). Gallbladder and biliary system: Nondilated, unremarkable Pancreas: Unremarkable Spleen: Nonenlarged Adrenals: No discrete nodule Kidneys: There is contrast excretion from prior administration. No hydronephrosis no suspicious solid mass. Vessels and lymph nodes: The main portal vein is patent. No abdominal aortic aneurysm or pathologic lymph nodes by size criteria. Bowel and peritoneum: Increased fecal loading. Appendix appears nondilated. No pathologic ascites. Body wall: Unremarkable Pelvis: Focal motion artifact in this region. Bladder is unremarkable. Reproductive organs not well evaluated on this study, no gross abnormality Bones: Suspected pathologic fractures, most notably at T10-T12, with mixed density internal vertebral attenuation. Multiple sclerotic foci, for example in the right iliac wing. IMPRESSION: Suspected pathologic fractures at the thoracolumbar junction again seen. Other indeterminate sclerotic lesions are seen in the pelvis. No acute abnormality in the soft tissues of the abdomen/pelvis. There is increased fecal loading. Ill-defined hypoattenuating region adjacent to the falciform ligament of the liver may represent focal fat, however in the setting of possible malignancy elsewhere, this could be better evaluated with MRI or PET-CT. Agree with prelim report regarding findings, an addendum was also submitted. A PET-CT could be helpful. Dictated by: Peng Layton M.D. on 08/09/2023 at 7:01 Approved by: Peng Layton M.D. on 08/09/2023 at 7:08
[2023-08-09] MEDS: OXYCODONE/ACETAMINOPHEN 5/325 TABLET 2 TAB PO (02:00)
== END 2023-08-09 04:54 | disposition home or self-care (01) ==
PROVIDERS: Emergency Provider Emergency Medicine; PCP Family Medicine
DX: M54.6 Pain in thoracic spine (principal); M89.9 Disorder of bone, unspecified; K59.00 Constipation, unspecified; R51.9 Headache, unspecified; R07.9 Chest pain, unspecified
CPT/HCPCS: 36415; 70450; 71260; 74177; 80053; 85025; 85651; 86140; 96374; 99284; J1170; Q9967

== ENCOUNTER 2023-09-01 08:07 | Day surgery (SDC) | payer OTHER, MEDICAID, SELFPAY ==
[2023-09-01] VITALS (7 sets, daily range): BP systolic 114–138; BP diastolic 69–84; PULSE 79–89; RESP 12–22; TEMP 36.3–36.9; O2SAT 95–99; BMI 25.5
--- NOTE | 2023-09-01 | PATH_ITS ---
[facility] Accession Number: [id number] No. of containers..01 Tissue . 01 Material submitted: . bone - BONE BIOPSY OF RIGHT ILIAC WING . 01 Diagnosis: Bone, Right Iliac Wing, Biopsy: Fragments of compact, partially mineralized bone admixed with red blood cell extravasation and an aggregate of mature adipose tissue. See comment. [facility] 09/09/2023 1233 Local . 01 Comment: The findings are nonspecific. Features of occult or an hematopietic malignancy are not identified. Few fragments show empty lacunae which may represent osteonecrosis in the appropriate clinical context. Per patient's chart history, multiple radiolucent lesions in multiple bone fragments are identified and within the iliac bone radiolucent and sclerotic lesion is noted. The findings in this biopsy may not be registered representative of the lesion. Clinical and radiologic correlation is recommended with additional sampling if clinically judicious. Findings were discussed with Dr. Anup Gould, patient's primary care provider, on 09/08/2023 at 1535 hours by via telephone. . 01 Electronically signed: . Noemi Ovalles MD, Pathologist NPI- [id number] . 01 Gross description: . The specimen is received in formalin labeled with the patient's name, , and no additional designation, consists of multiple fragments of candelario to brown osseous tissue aggregating to 1.5 x 0.3 x 0.2 cm. Filtered and submitted entirely in cassette A1 following decalcification in Immun[employer]. ([id number]) /MRV 09/02/2023 1730 Local . 01 Pathologist provided ICD-10: M85.9 . 01 CPT . 221339, [id number] Specimen Comment: A courtesy copy of this report has been sent to [phone] Performed at: 01 [facility] [address], [place], [place] [id number] MD Yehuda Vasquez MD Phone: [phone]
[2023-09-01 09:02] LABS: Platelet Count 249 X10^3/uL (150-400)
[2023-09-01 09:09] LABS: Prothrombin Time 11.6 SECONDS (9.4-12.5)
[2023-09-01] MEDS: fentaNYL 100 MCG/2 ML INJ IV (09:53)
--- NOTE | 2023-09-01 10:15 | DI.CT.S_ITS ---
PROCEDURE: CT BIOPSY BONE SUPERFICIAL Sedation analgesia : Not given due to patient's history. INDICATIONS: Sclerotic bone lesions including the iliac bone, referred for biopsy. TECHNIQUE: The indications, alternatives, benefits, risks, and possible complications of the procedure were communicated to the patient. Informed written consent from the patient was obtained and placed in the chart. Continuous EKG and hemodynamic monitoring was started by trained personnel. The patient was brought to the CT suite and carpenter prototype spiral CT imaging was performed with localization grid. The appropriate site for percutaneous access to the biopsy target was marked, was prepped and draped sterilely, and was infused with local anaesthesia. Under CT guidance, a core biopsy trocar and needle set was advanced to the biopsy target, and specimen(s) were obtained. The trocar and needle were then removed, and the patient was sent for post-procedure monitoring. COMPARISON: CT chest, abdomen and pelvis, dated 08/09/2023. FINDINGS: Biopsy site: Right iliac wing Needle: 14 gauge biopsy needle with introducer trocar. Number of passes: 2 Medications: 1% lidocaine for local anaesthesia. IV fentanyl was given (see nurse's notes) Complications: None. IMPRESSION: Successful CT-guided biopsy of right iliac wing approximately 1.4 cm sclerotic lesion Dictated by: Hasmukh Zaldivar M.D. on 09/02/2023 at 14:34 Approved by: Hasmukh Zaldivar M.D. on 09/02/2023 at 14:38
[2023-09-01] MEDS: LIDOCAINE 1% 20 ML INJ ×2 (10:42→10:47)
== END 2023-09-01 11:00 | disposition home or self-care (01) ==
PROVIDERS: Radiology Diagnostic Radiology; PCP Family Medicine; Referring Provider Family Medicine; Visit Provider Family Medicine
DX: M89.9 Disorder of bone, unspecified (principal)
CPT/HCPCS: 20220; 77012; 85049; 85610; J3010

== ENCOUNTER 2024-06-12 10:32 | Emergency (ER) | payer OTHER, MEDICAID, SELFPAY ==
[2024-06-12 11:00] VITALS: BP 91/51; PULSE 62; RESP 18; TEMP 36.8; O2SAT 95; BMI 25.0
--- NOTE | 2024-06-12 11:39 | DI.RAD.S_ITS ---
PROCEDURE: XR KNEE RT 3V INDICATIONS: fall with pain TECHNIQUE: 3 views of the knee were acquired. COMPARISON: None. FINDINGS: Bones: No fractures or dislocations. Fragmented appearance of the lateral patella is chronic and may be unrelated to remote trauma. No suspicious bony lesions. Soft tissues: No joint effusion. No suspicious soft tissue calcifications. IMPRESSION: No acute bony abnormality or significant effusion. Dictated by: Manoj Noe M.D. on 06/12/2024 at 12:25 Approved by: Manoj Noe M.D. on 06/12/2024 at 12:26
--- NOTE | 2024-06-12 12:03 | ED_ITS ---
HPI - Fall <Antionette Aquino PA-C - Last Filed: 06/12/24 13:16> General Chief Complaint: Fall Stated Complaint: fall, r knee/l leg/back injury Time Seen by Provider: 06/12/24 12:03 Source: patient Mode of arrival: Wheelchair History of Present Illness HPI Narrative: Patient is a pleasant 53 year female that presents to the emergency department with her significant other. Patient was walking and [employer] today, she slipped and unknown substance, kind of did the splits. She is pain to the inside of the left upper may and her right knee. History of chronic pain, ongoing issues. No treatment prior to being seen here in the emergency department. Did not hit her head. No loss of consciousness. No other physical complaints. Ambulating with antalgic gait. Brought into the [employer] by wheelchair. Related Data Home Medications Medication Instructions Recorded Confirmed atenolol 25 mg tablet 25 mg PO DAILY 09/01/23 09/01/23 baclofen 20 mg tablet 20 mg PO ONCE PM 09/01/23 09/01/23 bupropion HCl 150 mg tablet,12 hr 150 mg PO BID 09/01/23 09/01/23 sustained-release cyclobenzaprine 10 mg tablet 10 mg PO 3XD PRN muscle spasm 09/01/23 09/01/23 fluoxetine 40 mg capsule 40 mg PO DAILY 09/01/23 09/01/23 quetiapine 50 mg tablet 50 mg PO DAILY 09/01/23 09/01/23 Previous Rx's Medication Instructions Recorded hydrocodone 5 mg-acetaminophen 325 1 tab PO Q4-6H PRN pain #10 tabs 06/09/22 mg tablet naproxen 500 mg tablet 500 mg PO BID #60 tabs 08/09/23 oxycodone-acetaminophen 5 mg-325 1 tab PO Q6H PRN cancer pain #40 08/09/23 mg tablet tabs ketorolac 10 mg tablet 10 mg PO Q8H PRN pain #15 tabs 06/12/24 Allergies Allergy/AdvReac Type Severity Reaction Status Date / Time venlafaxine [From Effexor] AdvReac pyschosis Verified 09/01/23 08:32 Review of Systems <Antionette Aquino PA-C - Last Filed: 06/12/24 13:16> Review of Systems Narrative: Negative except as above Musculoskeletal Comments: Medial left may pain, right knee pain Patient History <Antionette Aquino PA-C - Last Filed: 06/12/24 13:16> Medical History IV drug user Social History household members: other Smoking Status: Former smoker alcohol intake: former Smoking Status: Former smoker alcohol intake frequency: holidays/special occasions only Substance Use Type: former substance user, opiates and methamphetamine Exam <Antionette Aquino PA-C - Last Filed: 06/12/24 13:16> Initial Vital Signs Initial Vital Signs: Vital Signs Temperature 98.3 F 06/12/24 11:00 Pulse Rate 62 06/12/24 11:00 Respiratory Rate 18 06/12/24 11:00 Blood Pressure 91/51 L 06/12/24 11:00 Pulse Oximetry 95 06/12/24 11:00 Oxygen Delivery Method Room Air 06/12/24 11:00 Reviewed Const General: cooperative, healthy appearing, comfortable, well developed, well groomed, No acute distress, No in distress, No anxious, No frail appearing, No ill appearing and No intoxicated appearing Eyes General: Yes appearance normal, both eyes and all related structures Pupils: PERRL EOM: EOM intact bilaterally Skin Other: Warm pink and dry Neuro Other: Cranial nerves are grossly intact Extrem Other: Currently at this time the patient is moving all of her extremities which out any difficulty, range of motion active and passive is within normal limits. Her cap refill is preserved. Her pulses are present. Patient does not appear to be in any substantial acute distress. Exam shows she has some pain along the patellar area, but it does not impact her strength or range of motion. Rober wrap is applied to the knee. Prescription sent to her pharmacy. Psych Other: Currently the patient disabled not working. Currently does not get paid until the . Currently living with her significant other in a car, and they are staying at [address] of the [address] lots of the senior living in [place] Appearance she is cleaned and dressed, mental status is normal, speech is normal, mood affect, thought process, content, and judgment are limits. <Allie Hayes MD - Last Filed: 06/12/24 20:41> Initial Vital Signs Initial Vital Signs: Vital Signs Temperature 98.3 F 06/12/24 11:00 Pulse Rate 62 06/12/24 11:00 Respiratory Rate 18 06/12/24 11:00 Blood Pressure 91/51 L 06/12/24 11:00 Pulse Oximetry 95 06/12/24 11:00 Oxygen Delivery Method Room Air 06/12/24 11:00 Procedures <Antionette Aquino PA-C - Last Filed: 06/12/24 13:16> Orthopedic Splinting/Casting Injury #1: Additional Comments: Rober wrap is applied Scores <Antionette Aquino PA-C - Last Filed: 06/12/24 13:16> GCS Citation: 15 Course <Antionette Aquino PA-C - Last Filed: 06/12/24 13:16> Orders Ordered: ED Orders 06/12/24 11:39 XR knee RT 3V Stat Vital Signs Vital signs: Vital Signs - 8 hr 06/12/24 13:11 Pulse Rate 75 Respiratory Rate 14 Blood Pressure 103/72 Pulse Oximetry 92 Oxygen Delivery Method Room Air Reviewed <Allie Hayes MD - Last Filed: 06/12/24 20:41> Orders Ordered: ED Orders 06/12/24 11:39 XR knee RT 3V Stat Vital Signs Vital signs: Vital Signs - 8 hr 06/12/24 13:11 Pulse Rate 75 Respiratory Rate 14 Blood Pressure 103/72 Pulse Oximetry 92 Oxygen Delivery Method Room Air MDM - Fall <Antionette Aquino PA-C - Last Filed: 06/12/24 13:16> Imaging Data Extremity x-ray #1: My Impression: No acute fracture, Radiologist's Impression: [place] [address] XRay Report Signed Patient: Yasmin Schroeder MR#: [id number] : 1970 Acct:[id number] Age/Sex: 53 / F Date of Service: 06/12/24 Loc: ED Accession Number: [id number] Procedure: XR knee RT 3V Ordering Provider: Antionette Aquino PA-C PROCEDURE: XR KNEE RT 3V INDICATIONS: fall with pain TECHNIQUE: 3 views of the knee were acquired. COMPARISON: None. FINDINGS: Bones: No fractures or dislocations. Fragmented appearance of the lateral patella is chronic and may be unrelated to remote trauma. No suspicious bony lesions. Soft tissues: No joint effusion. No suspicious soft tissue calcifications. IMPRESSION: No acute bony abnormality or significant effusion. Dictated by: Manoj Noe M.D. on 06/12/2024 at 12:25 Approved by: Manoj Noe M.D. on 06/12/2024 at 12:26 [facility] Narrative Medical decision making narrative: 53-year-old female fell at the local [employer], complains of left medial may pain and right knee pain. Exam negative for any substantial acute red flags or find ings. X-rays negative for any acute fractures. Rober wrap Prescription sent to her pharmacy Follow up with her primary care doctor Supportive therapy education ED precautions Differential diagnosis knee contusion, knee sprain Discharge Plan Departure Patient Disposition: Home Clinical Impression: Contusion of knee, right Qualifiers: Encounter type: initial encounter Qualified Code(s): S80.01XA - Contusion of right knee, initial encounter Right knee sprain Qualifiers: Encounter type: initial encounter Involved ligament of knee: unspecified ligament Qualified Code(s): S83.91XA - Sprain of unspecified site of right knee, initial encounter Activity Restrictions/Additional Instructions: Rest, ice, elevate Rober wrap for support X-ray no acute fracture Follow up with her primary care doctor Prescription sent to the pharmacy Prescriptions: New ketorolac 10 mg tablet 10 mg PO Q8H PRN (Reason: pain) Qty: 15 0RF Rx Instructions: maximum total duration of 5 days from all oral, intranasal, or parenteral formulations No Action hydrocodone-acetaminophen 5-325 mg tablet 1 tab PO Q4-6H PRN (Reason: pain) Qty: 10 0RF naproxen 500 mg tablet 500 mg PO BID Qty: 60 1RF oxycodone-acetaminophen 5-325 mg tablet 1 tab PO Q6H PRN (Reason: cancer pain) Qty: 40 0RF fluoxetine 40 mg capsule 40 mg PO DAILY cyclobenzaprine 10 mg tablet 10 mg PO 3XD PRN (Reason: muscle spasm) bupropion HCl 150 mg tablet sustained-release 12 hr 150 mg PO BID atenolol 25 mg Tablet 25 mg PO DAILY baclofen 20 mg tablet 20 mg PO ONCE PM quetiapine 50 mg tablet 50 mg PO DAILY Referrals: Anup Gould MD [Primary Care Provider] - Stand Alone Forms: Patient Portal/API ED Sign-out <Allie Hayes MD - Last Filed: 06/12/24 20:41> Cosign ED Attending Cosignature Attestation: I was immediately available in the department for consultation throughout this patient's visit. Allie Hayes MD
[2024-06-12 13:11] VITALS: BP 103/72; PULSE 75; RESP 14; O2SAT 92
== END 2024-06-12 13:13 | disposition home or self-care (01) ==
PROVIDERS: Emergency Provider Physician Assistant; PCP Family Medicine
DX: S80.01XA Contusion of right knee, initial encounter (principal); S83.91XA Sprain of unspecified site of right knee, initial encounter; W18.30XA Fall on same level, unspecified, initial encounter
CPT/HCPCS: 73562; 99281; 99283